=== PATIENT | female | born 1965 | race African-American/Black ===

== ENCOUNTER 2016-12-04 22:22 | Emergency (ER) | payer BC, OTHER ==
[~2016-12-04 22:22] MED LIST: ACETAMINOPHEN500 M6 PO; ALEVE220 M1 PO; CIPROFLOXACIN500 M1 PO; COUMADIN10 MG PO; FIORICET 50-301 EACH PO; MAXZIDE PO; PERCOCET5/325 PO; VITAMIN B12-FO1 EACH PO
[2016-12-04 23:27] LABS: BASOPHIL# 0.1 X10e3 (0-0.3); DIFF IND NO; EOSINOPHIL# 0.1 X10e3 (0-0.7); EOSINOPHIL% 1.3 % (0.0-7.0); HEMATOCRIT 46.6 % (35.0-45.0); HEMOGLOBIN 15.6 gm/dL (12.0-16.0); LYMPHOCYTE# 1.8 X10e3 (1.0-3.5); LYMPHOCYTE% 16.8 % (17.0-45.0); MEAN CELL VOLUME 87.9 FL (83-96); MEAN CORPUSCULAR HEMOGLOBIN 29.4 PG (28-34); MEAN CORPUSCULAR HGB CONC 33.4 g/dL (30-36); MONOCYTE# 0.4 X10e3 (0-1.0); MONOCYTE% 3.9 % (3.0-12.0); NEUTROPHIL# 8.4 X10e3 (1.5-7.1); PLATELET COUNT 287 X10e3 (140-420); RED CELL DISTRIBUTION WIDTH 14.2 % (11.0-15.5); WHITE BLOOD COUNT 10.9 X10e3 (4.0-10.5)
[2016-12-04 23:41] LABS: INR 1.4; PARTIAL THROMBOPLASTIN TIME 36.2 SECONDS (23.5-31.3)
[2016-12-04 23:51] LABS: BLOOD UREA NITROGEN 15 mg/dL (9-23); BUN/CREATININE RATIO 18.75; CALCIUM SERUM 9.2 mg/dL (8.4-10.2); CARBON DIOXIDE 29 mmol/L (22-31); CHLORIDE 100 mmol/L (100-111); CREATININE SERUM 0.8 mg/dL (0.6-1.4); GLOM FILT RATE Estimated ABOVE60 mL/min (>60); GLUCOSE FASTING 109 mg/dL (70-110); POTASSIUM 3.9 mmol/L (3.5-5.1); SODIUM 138 mmol/L (135-145)
== END 2016-12-05 02:05 | disposition home or self-care (01) ==
LOC: CED 22:22
PROVIDERS: Emergency Medicine
DX: R04.0 Epistaxis (principal); F17.210 Nicotine dependence, cigarettes, uncomplicated; Z88.8 Allergy status to other drugs, medicaments and biological substances; Z79.899 Other long term (current) drug therapy
CPT/HCPCS: 30901; 36415; 80048; 85025; 85610; 85730; 96374; 99283; J2550